=== PATIENT | female | born 1980 | race Hispanic/Latino ===

== ENCOUNTER 2022-10-06 13:58 | Emergency (ER) | payer MEDICAID, SELFPAY | END 2022-10-06 15:37 | disposition home or self-care (01) | LOC: CSHERS 13:58 | DX: O03.9 Complete or unspecified spontaneous abortion without complication (principal); Z3A.01 Less than 8 weeks gestation of pregnancy; Z87.891 Personal history of nicotine dependence | CPT/HCPCS: 84702; 99283 ==